=== PATIENT | female | born 1980 | race Caucasian/White ===

== ENCOUNTER 2018-03-17 12:20 | Emergency (ER) | payer BC | END 2018-03-17 13:00 | disposition home or self-care (01) | LOC: NAV ERS 12:20 | DX: H10.9 Unspecified conjunctivitis (principal); J06.9 Acute upper respiratory infection, unspecified; K21.9 Gastro-esophageal reflux disease without esophagitis; I10 Essential (primary) hypertension; Z87.891 Personal history of nicotine dependence; Z79.899 Other long term (current) drug therapy | CPT/HCPCS: 99282 ==